=== PATIENT | male | born 1950 | race Caucasian/White ===

== ENCOUNTER 2017-07-01 16:16 | Emergency (ER) | payer OTHER ==
[~2017-07-01] VITALS: Ht 175.3 cm; Wt 82.9 kg
[~2017-07-01 16:16] MED LIST: ASPI81TA82 PO; HYDR-3129 PO; INSU100V3 SC; METO50CR PO; NEUR600T PO; PAME50CA PO; PRAV40TA2 PO; PROT40TA PO; SERT-129 PO; TAMS0.4C67 PO; VENTAER INH; XANA0.5T PO; ZITH250T PO
[2017-07-01 16:22] VITALS: BP 152/85; PULSE 85; RESP 18; TEMP 97.4; O2SAT 97
--- NOTE | 2017-07-01 16:46 | PD ---
HPI Chief Complaint: Back/ Neck Pain or Injury Time Seen by Provider: 16:43 Travel History International Travel<30 days: No Contact w/Intl Traveler<30days: No Traveled to known affect area: No History of Present Illness HPI This patient complains of back pain. Severity is moderate. Location is right flank. No sciatic radiation. No injury or trauma or urinary complaints or fever. He has history of daily chronic back pain taking muscle relaxants and narcotics but states that this is a different pain in a different location. No alleviating factors. Exacerbating factors. Duration of this flare is one day PFSH Past Medical History Arthritis: No Asthma: No Autoimmune Disease: No Anxiety: Yes Depression: Yes Heart Rhythm Problems: Yes (MVP-murmur) Cancer: Yes (COLON CA) Cardiac Catheterization: No Cardiovascular Problems: Yes (MITRAL VALVE PROLAPSE) High Cholesterol: Yes Chemotherapy: Yes (COLON CA) Chest Pain: Yes Congestive Heart Failure: No COPD: No Cerebrovascular Accident: Yes Coronary Artery Disease: Yes (MVP, RHEUMATIC HEART DISEASE) Diabetes: Yes Patient Takes Glucophage: No Diminished Hearing: Yes Endocrine: Yes Gastrointestinal Disorders: No GERD: No Genitourinary: Yes Headaches: No Hiatal Hernia: No Hypertension: Yes Immune Disorder: No Implanted Vascular Access Dvce: No Kidney Stones: No Musculoskeletal: Yes Neurologic: Yes Psychiatric: Yes Reproductive: No Respiratory: Yes (PNA) Migraines: No Radiation Therapy: No Renal Failure: Yes (stage 3 renal failure) Seizures: No Sickle Cell Disease: No Sleep Apnea: No Thyroid Disease: No Ulcer: No Past Surgical History Abdominal Surgery: Yes (UMBILICAL HERNIA; COLON SX S/P COLON CANCER) AICD: No Arteriovenous Shunt: No Cardiac Surgery: No Cholecystectomy: Yes (JANUARY 2014) Coronary Artery Bypass Graft: No Ear Surgery: No Endocrine Surgery: No Eye Surgery: No Genitourinary Surgery: No Gynecologic Surgery: No Insulin Pump: No Joint Replacement: No Neurologic Surgery: No Oral Surgery: No Pacemaker: No Thoracic Surgery: No Tonsillectomy: Yes Other Surgery: Yes Family History Family Myocardial Infarction: Yes (FATHER ) Social History Alcohol Use: Yes (OCCAS) Tobacco Use: No Substance Use: No Allergies-Medications (Allergen,Severity, Reaction): Coded Allergies: penicillin G (Unverified Allergy, Severe, Anaphylaxis, 07/01/17) Reported Meds & Prescriptions Reported Meds & Active Scripts Active Reported Xanax (Alprazolam) 0.5 Mg Tab 0.5 Mg PO BID PRN Lortab (Hydrocodone-Acetaminophen) 10-325 Mg Tab 1 Tab PO Q4H PRN Vitamin D (Cholecalciferol) 2,000 Unit Cap Unknown Dose PO DAILY Iron (Ferrous Sulfate) 325 Mg Cap 325 Mg PO DAILY Aspirin Children's (Aspirin) 81 Mg Chew 81 Mg CHEW DAILY Nitrostat SL (Nitroglycerin) 0.4 Mg Subl 0.4 Mg SL DIRECTED PRN 1 tablet under the tongue as needed for chest pain. Repeat every 5 minutes for a total of 3 DOSES or call 911 if NO relief. Pantoprazole (Pantoprazole Sodium) 40 Mg Tab 40 Mg PO DAILY Tizanidine (Tizanidine HCl) 2 Mg Tab 2 Mg PO TID Gabapentin 600 Mg Tab 600 Mg PO TID Lipitor (Atorvastatin Calcium) 20 Mg Tab 20 Mg PO HS Tamsulosin (Tamsulosin HCl) 0.4 Mg Cap 0.4 Mg PO HS Sertraline (Sertraline HCl) 100 Mg Tab 100 Mg PO DAILY Lantus Inj (Insulin Glargine) 1,000 Unit/10 Ml Vial 23 Units SQ HS Review of Systems General / Constitutional: No: Fever Eyes: No: Visual changes HENT: No: Headaches Cardiovascular: No: Chest Pain or Discomfort Respiratory: No: Shortness of Breath Gastrointestinal: No: Abdominal Pain Genitourinary: Positive: Flank Pain, No: Dysuria Musculoskeletal: Positive: Pain Skin: No Rash Neurologic: No: Weakness Psychiatric: No: Depression Endocrine: No: Polydipsia Hematologic/Lymphatic: No: Easy Bruising Physical Exam Narrative GENERAL: Well-nourished, well-developed patient with right flank pain . SKIN: Focused skin assessment reveals no rash and nodules. Skin is Warm and dry. HEAD: Atraumatic. Normocephalic. EYES: Pupils equal and round. No scleral icterus. No injection or drainage. ENT: No nasal bleeding or discharge. Mucous membranes pink and moist. NECK: Trachea midline. No JVD. CARDIOVASCULAR: Regular rate and rhythm. No murmur appreciated. RESPIRATORY: No accessory muscle use. Clear to auscultation. Breath sounds equal bilaterally. GASTROINTESTINAL: Abdomen soft, non-tender, nondistended. Hepatic and splenic margins not palpable. MUSCULOSKELETAL: No obvious deformities. No clubbing. No cyanosis. No edema. No CVA or midline tenderness. Straight leg raise negative NEUROLOGICAL: Awake and alert. No obvious cranial nerve deficits. Motor grossly within normal limits. Normal speech. PSYCHIATRIC: Appropriate mood and affect; insight and judgment normal. Data Data Last Documented VS Vital Signs Date Time Temp Pulse Resp B/P (MAP) Pulse Ox O2 Delivery O2 Flow Rate FiO2 07/01/17 16:51 24 96 Room Air 07/01/17 16:22 97.4 85 152/85 (107) Orders Orders Ct Abd/Pel W/O Iv Contrast (07/01/17 ) Urinalysis - C+S If Indicated (07/01/17 16:43) Chest, Single Ap (07/01/17 ) Electrocardiogram (07/01/17 ) Iv Access Insert/Monitor (07/01/17 17:51) Complete Blood Count With Diff (07/01/17 17:51) Basic Metabolic Panel (Bmp) (07/01/17 17:51) Furosemide Inj (Lasix Inj) (07/01/17 18:00) Morphine Inj (Morphine Inj) (07/01/17 18:30) Ondansetron Inj (Zofran Inj) (07/01/17 18:30) Labs Laboratory Tests Test 07/01/17 17:00 07/01/17 18:00 Urine Collection Type VOIDED Urine Color YELLOW Urine Turbidity CLEAR Urine pH 5.5 Urine Specific [place] 1.024 Urine Protein 100 mg/dL Urine Glucose (UA) NEG mg/dL Urine Ketones NEG mg/dL Urine Occult Blood LARGE Urine Nitrite NEG Urine Bilirubin NEG Urine Leukocyte Esterase NEG Urine WBC 0-2 /hpf Urine Bacteria RARE /hpf Urine Hyaline Casts 0-2 /lpf Microscopic Urinalysis Comment CULT NOT INDICATED Urine Collection Time 1700 White Blood Count 8.0 TH/MM3 Red Blood Count 4.23 MIL/MM3 Hemoglobin 13.2 GM/DL Hematocrit 38.1 % Mean Corpuscular Volume 90.1 FL Mean Corpuscular Hemoglobin 31.2 PG Mean Corpuscular Hemoglobin Concent 34.6 % Red Cell Distribution Width 13.5 % Platelet Count 193 TH/MM3 Mean Platelet Volume 6.7 FL Neutrophils (%) (Auto) 74.6 % Lymphocytes (%) (Auto) 13.9 % Monocytes (%) (Auto) 6.7 % Eosinophils (%) (Auto) 2.0 % Basophils (%) (Auto) 2.8 % Neutrophils # (Auto) 6.0 TH/MM3 Lymphocytes # (Auto) 1.1 TH/MM3 Monocytes # (Auto) 0.5 TH/MM3 Eosinophils # (Auto) 0.2 TH/MM3 Basophils # (Auto) 0.2 TH/MM3 CBC Comment DIFF FINAL Differential Comment Blood Urea Nitrogen 20 MG/DL Creatinine 1.50 MG/DL Random Glucose 149 MG/DL Calcium Level 8.9 MG/DL Sodium Level 143 MEQ/L Potassium Level 4.1 MEQ/L Chloride Level 108 MEQ/L Carbon Dioxide Level 26.9 MEQ/L Anion Gap 8 MEQ/L Estimat Glomerular Filtration Rate 46 ML/MIN MDM Medical Decision Making Medical Screen Exam Complete: Yes Emergency Medical Condition: Yes Medical Record Reviewed: Yes Differential Diagnosis Mechanical back pain, kidney stone, sciatica, pyelonephritis Narrative Course I have reviewed the patient's electronic medical record. This is patient's third visit in the last 2 years for back pain He looks neurologically intact CT of abdomen and pelvis shows nothing emergent. No aortic aneurysm or renal stone. We did discuss incidental findings and note that he should review them with his primary physician and he agrees to do. Urinalysis does not meet standards for culture IV placed CBC is normal Metabolic profile reveals minor renal insufficiency which is chronic per patient I reviewed his chest x-ray which suggest the possibility of a hint of vascular congestion but no florid pulmonary edema seen He has no history of cardiac disease and no extremity edema to suggest CHF I did give him one time dose of 40 no times IV Lasix but don't recommend continuing it for now He should call his primary physician and get follow-up and discuss his workup. His left flank pain etiology is not entirely clear. As noted he does have chronic back pain but reported this was different, hence the workup. I gave him a dose of morphine and Zofran for symptom relief Diagnosis Primary Impression: Acute left flank pain Additional Impressions: Pulmonary vascular congestion Renal insufficiency, mild Additional Instructions: The patient was advised to follow up with their physician and return if they worsen. Med/Other Pt SpecificInfo: Other Disposition: 01 DISCHARGE HOME Condition: Stable Jorge Sawant MD Jul 01, 2017 16:46
[2017-07-01] MEDS ORDERED: NITR0.4S SL (16:57)
[2017-07-01] MEDS ORDERED: HYDR-3535 PO (16:57)
[2017-07-01] MEDS ORDERED: TAMS0.4C4 PO (16:57)
[2017-07-01] MEDS ORDERED: PANT40TA3 PO (16:57)
[2017-07-01] MEDS ORDERED: SERT-129 PO (16:57)
[2017-07-01] MEDS ORDERED: LANTUS2P SQ (16:57)
[2017-07-01] MEDS ORDERED: VITA200013 PO (16:57)
[2017-07-01] MEDS ORDERED: LIPI20TA PO (16:57)
[2017-07-01] MEDS ORDERED: TIZA2TAB PO (16:57)
[2017-07-01] MEDS ORDERED: ASPI81CH7 CHEW (16:57)
[2017-07-01] MEDS ORDERED: ALPR.5 PO (16:57)
[2017-07-01] MEDS ORDERED: FERR325C PO (16:57)
[2017-07-01] MEDS ORDERED: GABA600T PO (16:57)
[2017-07-01 17:08] LABS: BLOOD, URINE LARGE (NEG); GLUCOSE,URINE NEG (NEG); KETONE, URINE NEG (NEG); NITRITE,URINE NEG (NEG); PH, URINE 5.5 (5.0-8.5)
[2017-07-01 17:34] LABS: METHOD OF COLLECTION VOIDED; URINE COLOR YELLOW (YELLW/STRAW)
[2017-07-01 17:36] LABS: BACTERIA, URINE RARE /hpf; COMMENT (UR) CULT NOT INDICATED; CULTURE IF INDICATED CULT NOT INDICATED; WBC, URINE 0-2 /hpf (0-5)
[2017-07-01 17:37] LABS: HYALINE CAST, URINE 0-2 /lpf (RARE)
--- NOTE | 2017-07-01 17:49 | RADRPT ---
EXAM DATE/TIME: 07/01/2017 17:16 [facility] COMPARISON: CHEST SINGLE AP, September 07, 2015, 8:00. INDICATIONS : Shortness of breath. MEDICAL HISTORY : Hypercholesterolemia. Hypertension. Carcinoma, colon. Mitral valve prolapse. Diabetic, Renal fa ilure, Rheumatic heart disease SURGICAL HISTORY : Cholecystectomy. Colon resection.Umbilical hernia repair.tonsilectomy ENCOUNTER: Initial ACUITY: 1 day PAIN SCORE: 7/10 LOCATION: Bilateral chest FINDINGS: A single view of the chest demonstrates some interstitial prominence characteristic of vascular conge stion or bibasilar. Left basilar consolidation with possible associated effusion. Heart size is promi nent. Osseous structures are intact some degenerative spurring of the dorsal spine. CONCLUSION: 1. Cardiomegaly with some interstitial prominence suggesting some degree of vascular congestion or vo lume overload. 2. Left basilar atelectasis/effusion Vince Frost MD on July 01, 2017 at 17:46 Board Certified Radiologist. This report was verified electronically.
[2017-07-01] MEDS ORDERED: FUROSEMIDE 40 MG/4 ML VIAL IV PUSH ONE (18:00)
[2017-07-01 18:07] LABS: BASOPHIL # 0.2 TH/MM3 (0-0.2); BASOPHIL % 2.8 % (0.0-2.0); EOSINOPHIL # 0.2 TH/MM3 (0-0.4); HEMATOCRIT 38.1 % (39.0-51.0); HEMO FLAGS DIFF FINAL; LYMPH % 13.9 % (9.0-44.0); LYMPHOCYTE # 1.1 TH/MM3 (1.0-4.8); MEAN CELL VOLUME 90.1 FL (80.0-100.0); MEAN CORPUSCULAR HEMOGLOBIN 31.2 PG (27.0-34.0); MEAN CORPUSCULAR HGB CONC 34.6 % (32.0-36.0); MONO % 6.7 % (0.0-8.0); NEUT % 74.6 % (16.0-70.0); PLATELET COUNT 193 TH/MM3 (150-450); RED BLOOD COUNT 4.23 MIL/MM3 (4.50-5.90); RED CELL DISTRIBUTION WIDTH 13.5 % (11.6-17.2)
--- NOTE | 2017-07-01 18:13 | RADRPT ---
EXAM DATE/TIME: 07/01/2017 17:39 [facility] COMPARISON: CT ABDOMEN & PELVIS W/O CONTRAST, January 02, 2016, 14:59. INDICATIONS : Right flank pain. Low back pain. ORAL CONTRAST: No oral contrast ingested. RADIATION DOSE: 16.51 CTDIvol (mGy) MEDICAL HISTORY : Carcinoma, colon. Cerebrovascular disease. Renal failure, chronic.Diabetes. Cardiovascular disease. SURGICAL HISTORY : Cholecystectomy. ENCOUNTER: Initial ACUITY: 3 days PAIN SCALE: 10/10 LOCATION: Right flank TECHNIQUE: Volumetric scanning of the abdomen and pelvis was performed. Using automated exposure control and ad justment of the mA and/or kV according to patient size, radiation dose was kept as low as reasonably achievable to obtain optimal diagnostic quality images. DICOM format image data is available electro nically for review and comparison. FINDINGS: LOWER LUNGS: The visualized lower lungs are clear. There is small posterior layering left pleural effusion LIVER: Homogeneous density without lesion. There is no dilation of the biliary tree. No calcified gallston es. Gallbladder is not visualized as a luminal structure. SPLEEN: Normal size without lesion. PANCREAS: Within normal limits. KIDNEYS: Normal in size and shape. There is no hydronephrosis. Bilateral renal cysts are stable. Question pun ctate right kidney calyceal nonobstructing stone ADRENAL GLANDS: Within normal limits. VASCULAR: There is no aortic aneurysm. BOWEL/MESENTERY: There are surgical clips around the mid sigmoid colon apparent prior resection. There are scattered u ncomplicated diverticuli of the colon predominantly the sigmoid and around the region of the hepatic flexure. ABDOMINAL WALL: Within normal limits. RETROPERITONEUM: There is no lymphadenopathy. BLADDER: No wall thickening or mass. REPRODUCTIVE: Within normal limits. INGUINAL: There is no lymphadenopathy or hernia. MUSCULOSKELETAL: Degenerative findings of the lower lumbar spine facet arthritic changes degenerative disease probable localized spinal stenosis L4-5. . CONCLUSION: No acute intra-abdominal or pelvic process. Bilateral kidneys are stable with bilateral cysts and a quest ion as to a punctate calcification nonobstructive right kidney calyceal stone. No evidence of obstruc tive uropathy. Surgical aura around the mid sigmoid colon and uncomplicat ed diverticuli of the colon. Degenerative changes of the lower lumbar spine with possible localized spinal stenosis L4-5. Small posterior layering left pleural effusion. Suggestion of a fat containing small right inguinal hernia Bo Torres MD on July 01, 2017 at 18:01 Board Certified Radiologist. This report was verified electronically.
[2017-07-01 18:16] LABS: POTASSIUM 4.1 MEQ/L (3.5-5.1)
[2017-07-01 18:19] LABS: BICARBONATE 26.9 MEQ/L (21.0-32.0)
[2017-07-01 18:30] VITALS: BP 138/88; PULSE 84; RESP 18; O2SAT 96
[2017-07-01] MEDS ORDERED: ONDANSETRON HCL 4 MG/2 ML VIAL IVP ONE (18:30)
[2017-07-01] MEDS ORDERED: MORPHINE SULFATE 4 MG/ML INJ IV PUSH ONE (18:30)
[2017-07-01 19:11] VITALS: BP 115/78; TEMP 97.9
--- NOTE | 2017-07-02 16:34 | EKG ---
Date Performed: 07/01/2017 Time Performed: 18:01:04 PTAGE: 67 years EKG: Sinus rhythm POSSIBLE LEFT VENTRICULAR HYPERTROPHY ABNORMAL ECG Compared to prior tracing no significant change PREVIOUS TRACING : 04/22/2016 16.02 DOCTOR: Serge Garcia Interpretating Date/Time 07/02/2017 16:33:49
== END 2017-07-01 19:13 | disposition home or self-care (01) ==
LOC: PHEFT 16:16 → PHED 19:13
DX: R10.9 Unspecified abdominal pain (principal); I12.9 Hypertensive chronic kidney disease with stage 1 through stage 4 chronic kidney disease, or unspecified chronic kidney disease; N18.3 Chronic kidney disease, stage 3 (moderate); E11.22 Type 2 diabetes mellitus with diabetic chronic kidney disease; E78.00 Pure hypercholesterolemia, unspecified; I25.10 Atherosclerotic heart disease of native coronary artery without angina pectoris; I34.1 Nonrheumatic mitral (valve) prolapse; Z86.73 Personal history of transient ischemic attack (TIA), and cerebral infarction without residual deficits; Z90.49 Acquired absence of other specified parts of digestive tract; Z85.038 Personal history of other malignant neoplasm of large intestine; Z88.0 Allergy status to penicillin
CPT/HCPCS: 71010; 74176; 80048; 81001; 85025; 93005; 96374; 96375; 99285; J1940; J2270; J2405